=== PATIENT | female | born 1960 ===

== ENCOUNTER 2023-01-18 14:09 | Outpatient (CLI) | payer BC ==
--- NOTE | 2023-01-18 17:53 | Ultrasound Report ---
PROCEDURE: Duplex Ext Veins Left INDICATIONS: LEFT CALIF PAIN TECHNIQUE: Real-time imaging, as well as color and pulse Doppler interrogation, were performed of the lower extr emity deep veins from the inguinal ligament to the popliteal fossa. COMPARISON: None. FINDINGS: The deep veins are normally compressible, and free of intraluminal thrombus. Color and pu lse Doppler demonstrate normal phasic intraluminal flow. There is normal augmentation response to di stal compression maneuver. IMPRESSION: Negative duplex right lower extremity venous ultrasound for DVT. Reviewed by: Bebeto Ford MD on 01/18/2023 5:52 PM PDT Approved by: Bebeto Ford MD on 01/18/2023 5:52 PM PDT Station ID: [id number]
== END 2023-01-18 14:10 | disposition home or self-care (01) ==
LOC: DI 14:09
PROVIDERS: ATTEND Family Medicine
DX: M79.662 Pain in left lower leg (principal)